=== PATIENT | female | born 1935 | race Asian ===

== ENCOUNTER 2017-01-31 11:38 | Inpatient (IN) | payer MEDICAID ==
[~2017-01-31] VITALS: Ht 147.3 cm; Wt 49.9 kg
--- NOTE | 2017-01-31 11:38 | NUR ---
Placed in room 02 . Placed on ekg monitor tech, blood pressure machine and pulse oximeter. To gown for exam. Side rails up. Report given to Greg
--- NOTE | 2017-01-31 11:40 | NUR ---
MADHAV Castillo at bedside examining patient.
[2017-01-31 11:42] VITALS: BP_SYST 162
--- NOTE | 2017-01-31 11:45 | NUR ---
Pt was brought in by BLS for dizziness and n/v. Pt's daughter is at bedside, pt speaks another language and is translating. Pt's states pt was working out this morning and started feeling dizzy and vomited 3 times. Pt denies fever or falling down. No other injuries/complaints per pt/daughter or noted.
[2017-01-31] MEDS ORDERED: NACL 0.9% 1,000 ML IV ONE (11:46)
[2017-01-31] MEDS ORDERED: MECLIZINE HCL 25 MG TABLET (ANITVERT) PO ONE (12:00)
[2017-01-31] MEDS ORDERED: PROCHLORPERAZINE EDISYLATE 10 MG/2 ML VIAL IVP ONE (12:00)
[2017-01-31 12:09] LABS: BASOPHILS # (AUTO) 0.3 K/uL (0.0-0.2); BASOPHILS % (AUTO) 2.6 % (0.0-2.0); EOSINOPHILS # (AUTO) 0.2 K/uL (0.0-0.4); EOSINOPHILS % (AUTO) 1.6 % (0.0-4.0); HEMATOCRIT 31.5 % (36-48); HEMOGLOBIN 10.9 g/dL (12.0-16.0); LYMPHOCYTES # (AUTO) 0.2 K/uL (1.0-5.5); LYMPHOCYTES % (AUTO) 1.8 % (20.5-51.5); MEAN CORPUSCULAR HEMOGLOBIN 36 pg (27-31); MEAN CORPUSCULAR HGB CONC 35 % (32-36); MEAN CORPUSCULAR VOLUME 105 fL (79.0-98.0); MONOCYTES # (AUTO) 0.4 K/uL (0.0-1.0); MONOCYTES % (AUTO) 2.9 % (1.7-9.3); NEUTROPHILS # (AUTO) 11.1 K/uL (1.8-7.7); NEUTROPHILS % (AUTO) 91.1 % (40.0-70.0); PLATELET COUNT (AUTO) 158 K/uL (130-430); RED CELL DISTRIBUTION WIDTH 11.5 % (9.0-15.0); WHITE BLOOD COUNT (AUTO) 12.2 K/uL (4.8-10.8)
[2017-01-31 12:19] LABS: ANION GAP 9 (5-15); CHLORIDE 101 mmol/L (98-107); CREATININE 1.26 mg/dL (0.55-1.30); GLUCOSE 296 mg/dL (70-99); SODIUM SERUM 136 mmol/L (136-145); UREA NITROGEN, BLOOD 34 mg/dL (8-21)
--- NOTE | 2017-01-31 12:20 | NUR ---
IV hydration was started and pt is tolerating it well, no noted infiltration or complaints of pain.
[2017-01-31 12:22] LABS: PROTHROMBIN TIME 10.4 SECS (9.5-12.5)
[2017-01-31 12:27] LABS: ALANINE AMINOTRANSFERASE 14 U/L (12-78); ALBUMIN 3.3 g/dL (3.4-4.8); ASPARTATE AMINOTRANSFERASE 51 U/L (10-37); LIPASE 665 U/L (73-393); TOTAL BILIRUBIN 0.7 mg/dL (0.0-1.0); TOTAL PROTEIN, SERUM 7.8 g/dL (6.4-8.3)
[2017-01-31] MEDS ORDERED: PANTOPRAZOLE SODIUM 40 MG/VIAL (PROTONIX) IVP ONE (12:30)
[2017-01-31 12:32] LABS: POTASSIUM 5.8 mmol/L (3.5-5.1)
--- NOTE | 2017-01-31 13:00 | NUR ---
Pt is resting comfortably in bed with no noted distress or discomfort, no episodes of vomiting
[2017-01-31 13:49] LABS: BILIRUBIN,URINE NEGATIVE (NEGATIVE); BLOOD, URINE 2+ (NEGATIVE); CLARITY/URINE HAZY (CLEAR); COLOR,URINE YELLOW (YELLOW); GLUCOSE,URINE 3+ (NEGATIVE); KETONES,URINE NEGATIVE (NEGATIVE); LEUKOCYTE ESTERASE ,URINE NEGATIVE (NEGATIVE); NITRITE, URINE NEGATIVE (NEGATIVE); PH,URINE 6.5 (5.0-8.0); PROTEIN URINE 2+ (NEGATIVE); UROBILINOGEN,URINE 0.2 (0.2-1.0)
[2017-01-31 13:57] LABS: BACTERIA,URINE MODERATE /HPF (None Seen)
--- NOTE | 2017-01-31 14:00 | NUR ---
Pt is resting in bed comfortably with no noted distress or discomfort.
--- NOTE | 2017-01-31 15:00 | NUR ---
Pt is resting comfortably with no complaints of pain, no noted distress or discomfort. Daughter is at bedside
[2017-01-31 16:00] VITALS: BP_SYST 130
[2017-01-31] MEDS ORDERED: [UNRECOGNIZED DRUG - OTHER] OP (16:06)
[2017-01-31] MEDS ORDERED: DOCU-144 PO (16:06)
[2017-01-31] MEDS ORDERED: CARV3.1246 PO (16:06)
[2017-01-31] MEDS ORDERED: LOSA100T11 PO (16:06)
[2017-01-31] MEDS ORDERED: FLUT16SP16 NS (16:06)
[2017-01-31] MEDS ORDERED: PRO40 PO (16:06)
[2017-01-31] MEDS ORDERED: [UNRECOGNIZED DRUG - CODE] OP (16:06)
[2017-01-31] MEDS ORDERED: GLIM2TAB2 PO (16:06)
[2017-01-31] MEDS ORDERED: polyethylene glycol (16:06)
[2017-01-31] MEDS ORDERED: ASPI-1063 PO (16:06)
[2017-01-31] MEDS ORDERED: LIP10 PO (16:06)
[2017-01-31] MEDS ORDERED: FERR-57 PO (16:06)
[2017-01-31] MEDS ORDERED: PATANOL OP (16:06)
[2017-01-31] MEDS ORDERED: ISOS60TA4 PO (16:06)
--- NOTE | 2017-01-31 16:12 | NUR ---
Pt is getting an US done at bedside, waiting to take the pt to [facility] floor 116A
--- NOTE | 2017-01-31 16:25 | NUR ---
Patient will be admitted to care of Dr Hunter. Admitted to Med Surg unit. Will go to room 116A. Belongings list completed. Summary report printed. Report will be given at bedside.
--- NOTE | 2017-01-31 16:28 | NUR ---
ADMISSION NOTE Received patient from ER via norah, received report from GAUDENCIO CORADO. Patient admitted with diagnosis of PANCREATIS. Patient oriented to hospital routine, call light, toileting and safety-patient verbalized understanding.
[2017-01-31 16:36] VITALS: BP_SYST 130
[2017-01-31] MEDS ORDERED: ONDANSETRON HCL 4 MG/2 ML VIAL IVP PRN (17:15)
[2017-01-31] MEDS ORDERED: DEXTROSE 50% JECT 50 ML DISP.SYRIN IVP PRN (17:15)
[2017-01-31] MEDS ORDERED: ACETAMINOPHEN 325 MG TABLET PO PRN (17:15)
[2017-01-31] MEDS ORDERED: MORPHINE 2 MG/ML INJ. SYRINGE IVP PRN (17:15)
--- NOTE | 2017-01-31 17:30 | NUR ---
Resting Pt awake, resting in bed. No complaints of dizziness, nausea or vomiting. Kept comfortable. Will monitor.
[2017-01-31] MEDS: D5NS 1,000 ML IV SCH (18:00)
[2017-01-31] MEDS: INSULIN REGULAR, HUMAN 100 UNITS/ML, 10 ML VIAL (novoLIN R) SUBCUT PRN ×2 (18:05→23:05)
--- NOTE | 2017-01-31 18:45 | NUR ---
Closing notes Pt asleep. No significant changes noted. Will endorse care to incoming nurse.
[2017-01-31 19:40] VITALS: BP_SYST 118
--- NOTE | 2017-01-31 19:40 | NUR ---
Initial Notes Pt is A/Ox2, with confusion noted. Pt becomes easily agitated. Unable to discuss plan of care due to confusion noted at this time, no family available at bedside. No IV site noted. Pt noted to be soiled with stool, CESSATION SYSTEMS OUTREACH SPECIALIST at bedside to clean at this time. F/C noted in place, and draining well to gravity. VSS. Safety measures in place, side rails up x3 with bed in lowest, locked position, bed alarm on at all times. All needs met at this time. Call light in reach. Will continue to monitor. Addendum: 01/31/17 at 2331 by Elva Carcamo LVN Note for wrong patient.
--- NOTE | 2017-01-31 19:40 | NUR ---
Initial Notes Pt is A/Ox4, only speaks Malaysian. Son is at bedside and is able to translate. Blue phone placed in room. Pt denies any pain or discomfort at this time. Plan of care discussed with pt and family, both verbalized understanding. VSS. IV intact. No skin breakdown noted. Safety measures in place, side rails up x3, with bed in lowest, locked position, bed alarm on. All needs met. Call light in hand. Will continue to monitor.
[2017-01-31] MEDS: CARVEDILOL 3.125 MG TABLET (COREG) PO SCH (21:09)
--- NOTE | 2017-01-31 21:15 | NUR ---
Assisted pt to restroom Assisted pt to restroom with cane. Pt noted to have steady gait. Pt voided in restroom without difficulty. Assisted pt back into bed safely. Son is at bedside. All needs met. Bed alarm on at all times. Call light in hand. Will continue to monitor.
[2017-02-01] VITALS (7 sets, daily range): BP systolic 136–173
--- NOTE | 2017-02-01 03:52 | NUR ---
Rounds Pt is sleeping comfortably at this time. Bed alarm on at all times. All needs met. Call light in hand. Will continue to monitor.
[2017-02-01] MEDS: D5NS 1,000 ML IV SCH ×2 (05:48→12:10)
--- NOTE | 2017-02-01 06:25 | NUR ---
Closing Notes Pt is awake, alert and oriented. Pt denies any pain or sob. IV intact. Blood sugar checked, 141. All needs met throughout shift. Will endorse care to am nurse. Call light in hand. Will continue to monitor.
--- NOTE | 2017-02-01 07:30 | NUR ---
NRSG: RECEIVED PATIENT LYING ON BED, FAMILY MEMBER AT THE BEDSIDE., AWAKE,ALERT AND ORIENTED X 4, [place]AP[place] SPEAKING AND TRANSLATED BY DAUGHTER AT THE BEDSIDE. NO C/O OF PAIN . RESPIRATION EVEN AND UNLABORED. LUNGS CLEAR BILATERAL .IV SITE ON THE RIGHT FOREARM INTACT AND INPLACED AND NO S/S OF INFILTRATION AND IVF ON PROGRESS.
[2017-02-01] MEDS ORDERED: PANTOPRAZOLE SODIUM 40 MG TAB PO SCH (09:00)
[2017-02-01] MEDS ORDERED: ASPIRIN 81 MG TABLET(ECOTRIN) PO SCH (09:00)
[2017-02-01] MEDS ORDERED: DOCUSATE SODIUM 100 MG CAPSULE PO SCH (09:00)
[2017-02-01] MEDS ORDERED: FLUTICASONE PROPIONATE 50 mCg/SPRAY 16 GM NS SCH (09:00)
--- NOTE | 2017-02-01 09:12 | NUR ---
Nutrition Update Moreno Scale 16 noted. Pt admitted for pancreatitis. Diet: NPO BMI: 23 kg/m2 RD to follow per nutrition care standards.
--- NOTE | 2017-02-01 09:30 | NUR ---
ACTIVITY: ASSISTED TO GO TO TOILET WITH CANE AND ACCOMPANIED BY NURSE , GAIT SLOW BUT STEADY AND BACK TO BED AFTER AND CALL LIGHT WITHIN REACH. SON AT THE BEDSIDE.
--- NOTE | 2017-02-01 10:11 | NUR ---
ORDERS: HAD ORDERS FROM DR. GABRIEL OF CBC,CMP AND LIPASE .
[2017-02-01] MEDS: CARVEDILOL 3.125 MG TABLET (COREG) PO SCH ×2 (10:33→20:17)
--- NOTE | 2017-02-01 10:50 | NUR ---
CLARIFICATION: DR. GABRIEL IF OK TO GIVE MEDS AND HE SAID EXCEPT FOR DIABETIC MEDS.
[2017-02-01 11:19] LABS: BASOPHILS % (AUTO) 0.1 % (0.0-2.0); EOSINOPHILS # (AUTO) 0.4 K/uL (0.0-0.4); EOSINOPHILS % (AUTO) 3.8 % (0.0-4.0); HEMATOCRIT 30.9 % (36-48); HEMOGLOBIN 10.3 g/dL (12.0-16.0); LYMPHOCYTES # (AUTO) 1.1 K/uL (1.0-5.5); LYMPHOCYTES % (AUTO) 10.5 % (20.5-51.5); MEAN CORPUSCULAR HEMOGLOBIN 35 pg (27-31); MEAN CORPUSCULAR HGB CONC 33 % (32-36); MEAN CORPUSCULAR VOLUME 105 fL (79.0-98.0); MONOCYTES # (AUTO) 0.6 K/uL (0.0-1.0); MONOCYTES % (AUTO) 5.7 % (1.7-9.3); NEUTROPHILS # (AUTO) 8.7 K/uL (1.8-7.7); NEUTROPHILS % (AUTO) 79.9 % (40.0-70.0); PLATELET COUNT (AUTO) 164 K/uL (130-430); RED BLOOD CELL COUNT(AUTO) 2.95 MIL/uL (4.2-6.2); RED CELL DISTRIBUTION WIDTH 11.4 % (9.0-15.0); WHITE BLOOD COUNT (AUTO) 10.8 K/uL (4.8-10.8)
[2017-02-01 11:28] LABS: ANION GAP 9 (5-15); CALCIUM 8.4 mg/dL (8.4-11.0); CHLORIDE 108 mmol/L (98-107); CREATININE 1.13 mg/dL (0.55-1.30); GLUCOSE 221 mg/dL (70-99); POTASSIUM 3.7 mmol/L (3.5-5.1); SODIUM SERUM 141 mmol/L (136-145); UREA NITROGEN, BLOOD 19 mg/dL (8-21)
[2017-02-01 11:32] LABS: ALANINE AMINOTRANSFERASE 12 U/L (12-78); ALBUMIN 3.1 g/dL (3.4-4.8); ASPARTATE AMINOTRANSFERASE 27 U/L (10-37); LIPASE 142 U/L (73-393); TOTAL BILIRUBIN 0.8 mg/dL (0.0-1.0); TOTAL PROTEIN, SERUM 7.3 g/dL (6.4-8.3)
--- NOTE | 2017-02-01 11:50 | NUR ---
DC PLANNING Received msg from Alana @ [facility], ph [phone], that pt is OON if stable to transfer to [facility]. Spoke w Dr Hunter in [facility] station gave order to transfer to [facility] Med/surg LOC via BLS ambulance. Called & left msg for Alana stable for transfer, informed pt's nurse Duncan. Addendum: 02/01/17 at 1223 by Taylor Warner RN Received call back from [facility], working on transfer for pt to go to [facility], need Md to Md, gave me accepting md's #, Dr Sarthak Mclean. Giving # to Dr Hunter for Md to . Informed son @ bedside, agreeable w transfer to [place], informed waiting for Md to Md first. Updated pt's nurse Duncan. Addendum: 02/01/17 at 1334 by Taylor Warner RN Received call from Alana @ [facility] that pt accepted @ [facility]. Still working on getting bed, will call nurse & give her transfer information. Can use any ambulance company w auth #[id number]. Called & placed [facility] ambulance, ph [phone], on will call. Spoke w son & pt @ bedside & informed, agreeable w transfer. Updated pt's nurse Dakota. Addendum: 02/01/17 at 1347 by Janell Jacobo DP Ordered Radiology CD. Placed transportation packet in nurses station.
[2017-02-01] MEDS: INSULIN REGULAR, HUMAN 100 UNITS/ML, 10 ML VIAL (novoLIN R) SUBCUT PRN (12:16)
--- NOTE | 2017-02-01 16:05 | NUR ---
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. 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
--- NOTE | 2017-02-01 18:50 | NUR ---
CLOSING: RESTING ON BED ,NO PAIN IV SITE INTACT AND INPLACED WITH IVF D5NS AT 100 CC/HR, .SON AT THE BEDSIDE AND CALL LIGHT WITHIN REACH. REMAINS NPO.
--- NOTE | 2017-02-01 19:55 | NUR ---
Opening note Report endorsed by day nurse at bedside. Patients son is at bedside. Patient discharge paper work printed and signed by son. Patient vital signs obtained and are stable. Patient IV site is saline locked. Linen changed to transfer linen. Will continue to monitor and wait for transfer ride.
--- NOTE | 2017-02-01 19:56 | NUR ---
REPORT: GAVE REPORT TO NIGHT RN, NO PAIN ,NO NAUSEA, NO VOMITING . [facility] WILL STORE PROTECTION SPECIALIST AT 1999.
--- NOTE | 2017-02-01 20:31 | NUR ---
Closing note patient d/c Patient is being discharged via gurney by [facility]. Report was given to Leyda with [facility].Patient is alert and oriented times four no signs of distress. Breathing is nonlabored and vital signs are stable. Blood pressure was 169/76 patients scheduled coreg given. Patient shows no signs and symptoms of hypertension. All belongings were sent with patient. Son is at bedside. son and patient understand reason for transfer patient agrees. Iv to right forearm 22 G Patent and saline lock.
== END 2017-02-01 20:35 | disposition short-term general hospital (02) | DRG 282 ==
LOC: SED 11:38 → SMU 16:06
PROVIDERS: ADMIT Internal Medicine Hospice and Palliative Medicine; ATTEND Internal Medicine Hospice and Palliative Medicine
DX: K85.10 Biliary acute pancreatitis without necrosis or infection (principal); E11.9 Type 2 diabetes mellitus without complications; Z79.899 Other long term (current) drug therapy; I25.2 Old myocardial infarction; Z79.82 Long term (current) use of aspirin
CPT/HCPCS: 36415; 70450-TC; 76700-TC; 80053; 81000-TC; 82962; 83605; 83690-TC; 84484; 85025; 85610-TC; 85730-TC; 87086; 93005; 96361; 96374; 96375; 99285; C9113; J0780; J1815; J7030; J7042; J8597